=== PATIENT | male | born 1970 | race Caucasian/White ===

== ENCOUNTER 2022-02-02 15:30 | Inpatient (IN) ==
[2022-02-02 15:46] VITALS: BMI 19.4
[2022-02-02] MEDS ORDERED: NS 1,000 ML IV 1,000 ML ONE (15:57)
[2022-02-02 16:00] LABS: ABG BASE EXCESS -0.4 mmol/L (-2.0-2.0); ABG HCO3 22.8 mmol/L (22-26)
[2022-02-02 16:01] LABS: ABG ALLEN TEST POS
[2022-02-02] MEDS ORDERED: NS 1,000 ML IV 1,000 ML IV ONE (16:04)
--- NOTE | 2022-02-02 16:07 | DR.GENAD ---
HPI Time Seen Time Seen by Provider: 02/02/22 15:58 PCP Primary Care Physician: ASIF WILLIAMSON, Complaint/Symptoms Chief Complaint Doctors Comments: 51 y/o male presents for evaluation. Started feeling ill 3 days ago. + productive cough, yellow sputum. Feeling hot/cold. Having worsening dyspnea. Was treated recently for pneumonia, improved. Was around a co-worker who was coughing. Denies nausea, vomiting, diarrhea. Smokes about 1 PPD. Chief Complaint:: PT REPORTS HAVING PNEUMONIA A FEW WEEKS AGO , PT PLACE ON LEVAQUIN AND HE STATES HE GOT BETTER ( RIGHT UPPER LOBE ) PT REPORTS THAT HE HAS BEEN HAVING INCREASED SOB, 02 SATS 78%, 81% WITH 02 ON AT 4 LPM ..BR ( PT REPORTS FEVER 101.4 YESTERDAY ) .BR Self Treatment fo Chief Complaint: PT IS ON SUBOXONE , PT REPORTS RATTLING WHEN HE LAYS DOWN ,,BR PT VERY WINDED WHEN HE TALKS ABERNATHY ,BR COVID-19 Coronavirus risk:travel/contact w/high risk person: No Has patient experienced Coronavirus symptoms: Yes Coronavirus symptoms experienced: Fever, Coughing and Shortness of Breath Nurses notes reviewed Nurses Notes Review: Yes Source History Provided: Patient Mode of Arrival Mode of Arrival: Ambulatory Timing Onset of Chief Complaint: 02/01/22 PMH PMH Past Medical History: No Past Surgical History: Yes Past Surgical History Comment: SKIN CANCER Family History History of Family Medical Conditions: No Social History Does patient currently use any type of tobacco product: Yes Have you used tobacco products in the last 12 months: Yes Type of Tobacco Use: Cigarettes Does any household member use tobacco: No Alcohol Use: None Do you use any recreational Drugs:: No Lives With: Family Lives Where: Home Travel Risk Coronavirus risk:travel/contact w/high risk person: No Has patient experienced Coronavirus symptoms: Yes Coronavirus symptoms experienced: Fever, Coughing and Shortness of Breath Infectious screening In the last 2 months have you had wt loss of >10#?: NO Have you had fever, night sweats or hemotysis?: No Have you traveled outside the country in the last 6 months?: No Isolation: Respiratory ROS Review of Systems Constitutional: Chills, Diaphoresis and Fever Eyes: No Symptoms Reported ENTM: Nose Congestion Respiratoy: Productive Cough and Short of Breath Cardiovascular: No Symptoms Reported Gastrointestinal/Abdominal: No Symptoms Reported Genitourinary: No Symptoms Reported Neurological: No Symptoms Reported Musculoskeletal: No Symptoms Reported Integumentary: No Symptoms Reported Hematologic/Lymphatic: No Symptoms Reported Psychiatric: No Symptoms Reported All Other Systems: Reviewed and Negative PE Vital Signs Vitals: Temperature 97.3 F Pulse Rate 98 Respiratory Rate 22 Blood Pressure 110/67 O2 Sat by Pulse Oximetry 91 General Limitations: No Limitations General Appearance: Alert and In No Apparent Distress Eyes Eye exam: PERRL and EOMI ENT ENT Exam: Mucous Membranes Moist Nose Exam: Normal Nose Exam Throat Exam: Normal Inspection Neck Neck Exam: Normal Inspection and Full ROM Chest Chest Inspection: Normal Inspection Respiratory Respiratory Exam: negative Accessory Muscle Use and Respiratory Distress Respiratory Exam: Bilateral: Rhonchi Cardiovascular Cardiovascular Exam: Regular Rate, Normal Rhythm and Normal Heart Sounds Abdominal Exam Abdominal Exam: Normal Inspection and Soft; negative Tenderness Extremities Extremities Exam: Normal Inspection and Full ROM; negative Tenderness and Edema Back Back Exam: Normal Inspection Neurologic Neurological Exam: Alert, Oriented X3 and CN II-XII Intact; negative Motor Sensory Deficit Psychiatric Psychiatric Exam: Normal Affect Skin Skin Exam: Warm and Dry MDM Differential Diagnosis Differential Diagnosis: Pneumonia,Exacerbation COPD, Covid, PTX COURSE Treatment Treatment: 51 y/o male ill x past 3 days. + productive cough, with worsening dyspnea. Pt is a smoker. Pulse ox in the 80s on RA. W/u initiated. Pt given duoneb treatment, IV solumedrol. CXR with biateral infiltrates, c/w pneumonia. Pt started on IV Rocephin. Labs overall acceptable. Covid/flu negative. Recommend admission for further treatment, in view of hypoxia. ROR Labs Reviewed Laboratory Results Reviewed?: Yes Result Diagrams: 02/02/22 16:25 02/02/22 16:25 Laboratory: 02/02/22 16:05 Sputum - Expectorated Sputum - Final WBC 6.7 X10^3/uL (3.6-10.0) 02/02/22 16:25 RBC 4.38 X10^6/uL (4.7-6.0) L 02/02/22 16:25 Hgb 13.7 g/dL (13.5-18.0) 02/02/22 16:25 Hct 39.7 % (42.0-54.0) L 02/02/22 16:25 MCV 90.6 fL (80.0-100.0) 02/02/22 16:25 MCH 31.3 pg (27.0-34.0) 02/02/22 16: MCHC 34.6 g/dL (33.0-35.0) 02/02/22 16:25 RDW 13.0 % (11.6-16.5) 02/02/22 16:25 Plt Count 189 X10^3/uL (150.0-450.0) 02/02/22 16:25 MPV 8.5 fL (7.4-11.0) 02/02/22 16:25 Neut % (Auto) 79.1 % (42.0-75.0) H 02/02/22 16: Lymph % (Auto) 13.1 % (21.0-51.0) L 02/02/22 16:25 [place] % (Auto) 7.7 % (0.0-13.0) 02/02/22 16:25 Eos % (Auto) 0.0 % (0.9-2.9) L 02/02/22 16:25 Baso % (Auto) 0.1 % (0.2-1.0) L 02/02/22 16:25 Neut # (Auto) 5.3 x10^3/uL (2.2-4.8) H 02/02/22 16:25 Lymph # (Auto) 0.9 X10^3/uL (1.3-2.9) L 02/02/22 16:25 [place] # (Auto) 0.5 x10^3/uL (0.3-0.8) 02/02/22 16:25 Eos # (Auto) 0.0 x10^3/uL (0.0-0.2) 02/02/22 16:25 Baso # (Auto) 0.0 X10^3/uL (0.0-0.1) 02/02/22 16: Absolute Nucleated RBC 0.0 /100WBC 02/02/22 16:25 ESR 56 MM/HOUR (0-15) H 02/02/22 16:25 Sample Site Rrad 02/02/22 15:55 ABG pH 7.460 (7.35-7.45) H 02/02/22 15:55 ABG pCO2 32.0 mmHg (35.0-45.0) L 02/02/22 15:55 ABG pO2 51.0 mmHg (80.0-100.0) L 02/02/22 15:55 ABG HCO3 22.8 mmol/L (22-26) 02/02/22 15:55 ABG O2 Saturation 88.0 % (90-100) L 02/02/22 15:55 ABG Base Excess -0.4 mmol/L (-2.0-2.0) 02/02/22 15:55 Jamie Test Pos 02/02/22 15:55 A-a Gradient 59.0 mmHg 02/02/22 15:55 FiO2 21.0 02/02/22 15:55 Blood Gas Comments Srinivas well 02/02/22 15:55 Sodium 136 mmol/L (136-145) 02/02/22 16:25 Corrected Sodium 136 mmol/L (136-145) 02/02/22 16:25 Potassium 3.2 mmol/L (3.5-5.1) L 02/02/22 16:25 Chloride 98 mmol/L (98-107) 02/02/22 16:25 Carbon Dioxide 22.4 mmol/L (21-32) 02/02/22 16:25 BUN 10 mg/dL (7-18) 02/02/22 16:25 Creatinine 1.07 mg/dL (0.70-1.30) 02/02/22 16:25 Est GFR (MDRD) Af Amer > 60 (>60) 02/02/22 16:25 Est GFR (MDRD) Non-Af > 60 (>60) 02/02/22 16:25 Glucose 111 mg/dL (65-99) H 02/02/22 16:25 Lactic Acid 1.7 mmol/L (0.4-2.0) 02/02/22 16:25 Calcium 8.7 mg/dL (8.5-10.1) 02/02/22 16:25 Corrected Calcium 9.3 mg/dL (8.5-10.1) 02/02/22 16:25 Total Bilirubin 0.60 mg/dL (0.2-1.0) 02/02/22 16:25 AST 15 Units/L (15-37) 02/02/22 16:25 ALT 16 Units/L (12-78) 02/02/22 16:25 Alkaline Phosphatase 83 Units/L (46-116) 02/02/22 16:25 Creatine Kinase 80 Units/L (39-308) 02/02/22 16:25 CK-MB (CK-2) < 1.0 ng/mL (0-4.0) 02/02/22 16:25 CK/CKMB % Calc 1.3 % (<4) 02/02/22 16:25 Troponin I High Sens 36.9 ng/L (4.0-60.0) 02/02/22 16:25 B-Natriuretic Peptide 73.8 pg/mL (0-79) 02/02/22 16:25 Total Protein 7.4 g/dL (6.4-8.2) 02/02/22 16:25 Albumin 3.3 g/dL (3.4-5.0) L 02/02/22 16:25 Globulin 4.1 g/dL (2.5-4.5) 02/02/22 16:25 Albumin/Globulin Ratio 0.8 Ratio (1.1-2.1) L 02/02/22 16:25 SARS-CoV-2 (PCR) Negative (NEGATIVE) 02/02/22 16:06 Influenza Type A (PCR) Negative (NEGATIVE) 02/02/22 16:06 Influenza Type B (PCR) Negative (NEGATIVE) 02/02/22 16:06 RSV (PCR) Negative (NEGATIVE) 02/02/22 16:06 Other Results Comments: Overall labs are acceptable, except for low pO2 on ABG. Potassium slightly low. XRAY XRAY Interpreted by: Both X-ray Results: + bilateral infoltrates. EKG Rate: 95 Wallace: Normal Rhythm: NSR Block: RBBB (incomplete) Hypertrophy: LAE ST: Nonsp Opioid Opioid Risk Tool Age (Zhang box if 16-45): No History of Preadolescent Sexual Abuse: No Total: 0 Total Score Risk Category: Low Risk Copyright: Olvin DEWEY predicting aberrant behaviors Diagnosis Discharge Problem: Hypoxia Bilateral pneumonia Qualifiers: Pneumonia type: due to unspecified organism Lung location: unspecified part of lung Qualified Code(s): J18.9 - Pneumonia, unspecified organism
--- NOTE | 2022-02-02 16:31 | RAD ---
HISTORYINCREASED SOB, 02 SATS 78%, 81% WITH 02 ON AT 4 LPM. PT IS ON SUBOXONE, PT REPORTS RATTLING WHEN HE LAYS DOWN. PT VERY WINDED WHEN HE TALKS DOES Relevant Clinical InformationSTUDYCHEST, 1 VIEWCOMPARISONNone.FINDINGSThe trachea is midline. The cardiac silhouette is unremarkable. Chronic emphysematous and interstitial lung changes. Bilateral patchy airspace disease, which is worse within the lower lobes. Blunting of the right costophrenic angle which may represent a small pleural effusion. No obvious pneumothorax. The bony thorax is unremarkable.IMPRESSIONConstellation of findings likely representing multifocal pneumonia. Recommend clinical/laboratory correlation and following to resolution.Electronically signed by: LORRI WINCHESTER (Feb 02, 2022 16:31:33)
[2022-02-02 16:47] LABS: BASOPHILS % (AUTO) 0.1 % (0.2-1.0); HEMATOCRIT 39.7 % (42.0-54.0); HEMOGLOBIN 13.7 g/dL (13.5-18.0); LYMPHOCYTES # (AUTO) 0.9 X10^3/uL (1.3-2.9); LYMPHOCYTES % (AUTO) 13.1 % (21.0-51.0); MEAN CORPUSCULAR HEMOGLOBIN 31.3 pg (27.0-34.0); MEAN CORPUSCULAR HGB CONC 34.6 g/dL (33.0-35.0); MEAN CORPUSCULAR VOLUME 90.6 fL (80.0-100.0); MEAN PLATELET VOLUME 8.5 fL (7.4-11.0); MONOCYTES # (AUTO) 0.5 x10^3/uL (0.3-0.8); MONOCYTES % (AUTO) 7.7 % (0.0-13.0); NEUTROPHILS # (AUTO) 5.3 x10^3/uL (2.2-4.8); NEUTROPHILS % (AUTO) 79.1 % (42.0-75.0); RED BLOOD COUNT 4.38 X10^6/uL (4.7-6.0); WHITE BLOOD COUNT 6.7 X10^3/uL (3.6-10.0)
[2022-02-02] MEDS ORDERED: ROCEPHIN VIAL 1 GRAM 1 G in NS 100 ML IV 100 ML IV ONE (16:52)
[2022-02-02] MEDS ORDERED: DUONEB 0.5 MG/3 MG (3 mL) NEB ONE ×3 (16:53→19:59)
[2022-02-02] MEDS ORDERED: SOLU-Medrol 125 MG VIAL IVP ONE (16:53)
[2022-02-02 17:05] LABS: LACTIC ACID 1.7 mmol/L (0.4-2.0)
[2022-02-02 17:11] LABS: ALANINE AMINOTRANSFERASE 16 Units/L (12-78); ALBUMIN 3.3 g/dL (3.4-5.0); ALKALINE PHOSPHATASE 83 Units/L (46-116); ASPARTATE AMINO TRANSFERASE 15 Units/L (15-37); BLOOD UREA NITROGEN 10 mg/dL (7-18); CALCIUM 8.7 mg/dL (8.5-10.1); CARBON DIOXIDE 22.4 mmol/L (21-32); CHLORIDE 98 mmol/L (98-107); CKMB % 1.3 % (<4); COR CA(FOR HYPOALB) 9.3 mg/dL (8.5-10.1); COR NA(FOR HYPERGLY) 136 mmol/L (136-145); CREATINE KINASE 80 Units/L (39-308); CREATINE KINASE MB < 1.0 ng/mL (0-4.0); CREATININE 1.07 mg/dL (0.70-1.30); SODIUM 136 mmol/L (136-145); TOTAL PROTEIN 7.4 g/dL (6.4-8.2); eGFR NON BLACK RACES > 60 (>60)
[2022-02-02] MEDS ORDERED: ROCEPHIN VIAL 1 GRAM ONE (17:28)
[2022-02-02] MEDS ORDERED: SOLU-Medrol 125 MG VIAL ONE (17:28)
[2022-02-02] MEDS ORDERED: DUONEB 0.5 MG/3 MG (3 mL) NEB SCH ×2 (18:56→21:00)
[2022-02-02] MEDS ORDERED: PULMICORT NEB TX 0.5 MG NEB ONE (19:59)
[2022-02-02] MEDS: PULMICORT NEB TX 0.5 MG NEB SCH (20:20)
[2022-02-02] MEDS: DUONEB 0.5 MG/3 MG (3 mL) NEB SCH (20:20)
[2022-02-02] MEDS ORDERED: PULMICORT NEB TX 0.5 MG NEB SCH (21:00)
[2022-02-02] MEDS: D5 1/2 NS + KCL 20 MEQ/L 1,000 ML IV SCH (21:00)
[2022-02-02] MEDS ORDERED: KLOR-CON PO PRN (21:24)
[2022-02-02] MEDS ORDERED: POTASSIUM CHLORIDE LIQ 20 MEQ UDC PO PRN (21:24)
[2022-02-02] MEDS ORDERED: POTASSIUM CHL 60 MEQ/NS 0.45% 500 ML IV PRN (21:24)
[2022-02-02] MEDS ORDERED: MICRO K EXTEN CAP 10 MEQ PO PRN (21:24)
[2022-02-02] MEDS ORDERED: POTASSIUM CHL 40 MEQ/NS 0.45% 500 ML IV PRN (21:24)
[2022-02-02] MEDS ORDERED: MAGNESIUM SULFATE 1 GRAM/100 mL PREMIX 1 G/100 ML BAG IV PRN (21:24)
[2022-02-02] MEDS ORDERED: K-RIDER 10 MEQ/NS 100 ML 10 MEQ/100 ML BAG IV PRN (21:24)
[2022-02-02] MEDS ORDERED: K-DUR TAB 20 MEQ PO PRN (21:24)
[2022-02-02] MEDS ORDERED: LEVAQUIN PREMIX IV 750 MG 750 MG/150 ML BAG IV SCH (22:00)
[2022-02-02] MEDS: FORTAZ or TAZICEF VIAL INJ 1 G in NS 100 ML IV + SPIKE MINIBAG* 100 ML IV SCH (22:40)
[2022-02-02] MEDS: SOLU-Medrol 40 MG VIAL IVP SCH (22:45)
[2022-02-02] MEDS: LEVAQUIN PREMIX IV 750 MG 750 MG/150 ML BAG IV SCH (23:00)
[2022-02-02] MEDS: NovoLIN R (or HumuLIN R) SC PRN (23:06)
[2022-02-02] MEDS ORDERED: FORTAZ or TAZICEF VIAL INJ ONE (23:22)
[2022-02-02] MEDS ORDERED: NS 100 ML IV 200 ML ONE (23:22)
[2022-02-03] MEDS: DUONEB 0.5 MG/3 MG (3 mL) NEB SCH ×6 (00:19→22:06)
[2022-02-03] MEDS: ROBITUSSIN DM PO SCH ×6 (00:45→20:34)
[2022-02-03 04:44] LABS: ALANINE AMINOTRANSFERASE 14 Units/L (12-78); ALBUMIN 2.5 g/dL (3.4-5.0); ALKALINE PHOSPHATASE 68 Units/L (46-116); ASPARTATE AMINO TRANSFERASE 11 Units/L (15-37); BLOOD UREA NITROGEN 11 mg/dL (7-18); CALCIUM 8.3 mg/dL (8.5-10.1); CARBON DIOXIDE 20.8 mmol/L (21-32); CHLORIDE 105 mmol/L (98-107); COR CA(FOR HYPOALB) 9.5 mg/dL (8.5-10.1); COR NA(FOR HYPERGLY) 141 mmol/L (136-145); CREATININE 0.95 mg/dL (0.70-1.30); SODIUM 139 mmol/L (136-145); TOTAL PROTEIN 6.4 g/dL (6.4-8.2); eGFR NON BLACK RACES > 60 (>60)
[2022-02-03 04:59] LABS: BASOPHILS % (AUTO) 0 % (0.2-1.0); HEMATOCRIT 34.2 % (42.0-54.0); LYMPHOCYTES # (AUTO) 0.4 X10^3/uL (1.3-2.9); LYMPHOCYTES % (AUTO) 9.9 % (21.0-51.0); MEAN CORPUSCULAR HGB CONC 33.9 g/dL (33.0-35.0); MEAN CORPUSCULAR VOLUME 91.4 fL (80.0-100.0); MEAN PLATELET VOLUME 8.6 fL (7.4-11.0); MONOCYTES # (AUTO) 0.3 x10^3/uL (0.3-0.8); MONOCYTES % (AUTO) 6.8 % (0.0-13.0); NEUTROPHILS # (AUTO) 3.7 x10^3/uL (2.2-4.8); NEUTROPHILS % (AUTO) 83.3 % (42.0-75.0); RED BLOOD COUNT 3.75 X10^6/uL (4.7-6.0); RED CELL DISTRIBUTION WIDTH 12.9 % (11.6-16.5); WHITE BLOOD COUNT 4.4 X10^3/uL (3.6-10.0)
[2022-02-03 05:01] LABS: HEMOGLOBIN 11.6 g/dL (13.5-18.0)
--- NOTE | 2022-02-03 05:42 | RAD ---
PROCEDURE: Chest X-ray 1 View .HISTORY: Dyspnea.TECHNIQUE: AP view .COMPARISON: 02/02/2022.TECHNICAL QUALITY: Satisfactory .FINDINGS:Unchanged cardio mediastinal silhouette and normal central vascularity.Continued patchy pneumonia right lung base similar to previous study. Improved pneumonia left base. No pleural fluid or masses.IMPRESSION:Improved pneumonia on the left and unchanged right base.Electronically signed by: Bennett Leon (Feb 03, 2022 05:41:50)
[2022-02-03] MEDS: SOLU-Medrol 40 MG VIAL IVP SCH ×3 (06:31→21:05)
[2022-02-03] MEDS: FORTAZ or TAZICEF VIAL INJ 1 G in NS 100 ML IV + SPIKE MINIBAG* 100 ML IV SCH (06:31)
[2022-02-03] MEDS: NovoLIN R (or HumuLIN R) SC PRN ×3 (06:35→21:05)
[2022-02-03] MEDS: D5 1/2 NS + KCL 20 MEQ/L 1,000 ML IV SCH ×3 (08:17→20:33)
[2022-02-03] MEDS: PULMICORT NEB TX 0.5 MG NEB SCH ×2 (08:40→20:45)
[2022-02-03] MEDS ORDERED: ROCEPHIN VIAL 1 GRAM 1 G in NS 100 ML IV 100 ML IV SCH (09:00)
[2022-02-03] MEDS: NICOTINE PATCH TD SCH (09:27)
[2022-02-03] MEDS ORDERED: SUBOXONE FILM SL SCH (10:00)
[2022-02-03] MEDS: SUBOXONE TAB SL SCH (10:13)
--- NOTE | 2022-02-03 12:56 | DR.H&P ---
H&P - History & Physical for Day of: H&P Date: 02/02/22 - Chief Complaint Chief Complaint: FEVER, SOB, COUGH - History of Present Illness History of Present Illness: IS A 51 YEAR OLD WHITE MALE. HE PRESENTED TO THE ER FOR COMPLAINTS OF INCREASING FEVER, SHORTNESS OF BREATH, AND A PRODUCTIVE COUGH. HE REPORTS BEING TREATED FOR RIGHT UPPER LOBE PNEUMONIA A FEW WEEKS AGO. HE ADMITS TO TAKING ALL ANTIBIOTICS WITHOUT IMPROVEMENT IN SYMPTOMS. SPUTUM IS APPARENTLY YELLOW AND THICK. SHORTNESS OF BREATH IS WORSE ON EXERTION. HIS PMH INCLUDES: OPIOID DEPENDENCE, SKIN CA. ON ARRIVAL TO THE ER, OXYGEN SATURATIONS WERE 78-81% ON ROOM AIR. HE WAS PLACED ON OXYGEN VIA NASAL CANNULA AT 2 LPM. SATURATIONS INCREASED TO THE LOWER 90s. HIS VITALS ON ARRIVAL WERE: 97.3-97-22-79%RA-118/57. LABS WERE OBTAINED. WBC 6.7, RBC 4.38, HGB 13.7, HCT 39.7, SODIUM 136, POTASSIUM 3.2, BUN 10, CREATININE 1.07, GLUCOSE 111, LACTIC ACID 107, CALCIUM 8.7, CRP 280.80, BNP 73.8, ALBUMIN 3.3. ABG REVEALED: 7.460, PC02 32, P02 51, HC03 22.8, 02 SAT 88, A-A GRADIENT 59, FI02 21. COVID, INFLUENZA, AND RSV NEGATIVE. SPUTUM AND BLOOD CULTURES WERE SET UP. A CHEST XRAY WAS OBTAINED AND REVEALED: Constellation of findings likely representing multifocal pneumonia. Recommend clinical/laboratory correlation and following to resolution. IN THE ER, HE WAS GIVEN A NORMAL SALINE BOLUS, ROCEPHIN 1G IM X 1, DUONEB X 1, SOLU-MEDROL 125MG IV X 1. HE WAS ADMITTED TO THE HOSPITAL FOR FURTHER EVALUATION AND TREATMENT OF BILATERAL PNEUMONIA AND HYPOXIA. HE WAS STARTED ON D51/2NS WITH 20MEQ KCL AT KVO, FORTAZ 1G IV Q8H, LEVAQUIN 750MG IV HS, ROBITUSSIN DM 10ML QID, SOLU-MEDROL 80MG IV Q4H, DUONEBS Q4H, PULMICORT NEBS BID, OTBS ACHS, HUMULIN R SLIDING SCALE, AND THE POTASSIUM AND MAGNESIUM PROTOCOL. OTHERWISE, WE PLAN TO FOLLOW UP WITH AM LABS AND CHEST XRAY AND C ONTINUE TO MONITOR. TIME SPENT ON CLINICAL ASSESSMENT, REVIEWING LABS AND IMAGING, DECISION MAKING, AND DOCUMENTATION GREATER THAN 75 MINUTES. - Past Medical History Additional Medical History: OPIOID DEPENDENCE, HX OF SKIN CANCER - Past Surgical History Surgical History: Ortho Surgery, Other - Family History Family Medical History: Diabetes Mellitus, [place], Hypertension - Social History Does patient currently use any type of tobacco product: Yes Have you used tobacco products in the last 12 months: Yes Type of Tobacco Use: Cigarettes Packs per day or dips/chews per day: 1PK Does any household member use tobacco: No Alcohol Use: None Drug Use: None - Medications Home Medications: No Known Drug Allergies Allergy (Verified 02/02/22 15:51) CONTINUE taking the following medications buprenorphine-naloxone 1.5 film BUCCAL DAILY 02/03/22 [History] - Review of Systems Constitutional: Fever, Weakness Eyes: No Symptoms Reported ENT: No Symptoms Reported Respiratory: Cough, Shortness of Breath, SOB with Excertion, Sputum Cardiovascular: No Symptoms Reported Gastrointestinal: No Symptoms Reported Genitourinary: No Symptoms Reported Musculoskeletal: No Symptoms Reported Skin: No Symptoms Reported Neurological: Weakness, Confusion - Physical Exam Vital Signs: Temperature 98.9 F Pulse Rate 72 Respiratory Rate 29 Blood Pressure 117/66 O2 Sat by Pulse Oximetry 94 Oriented: Normal Eyes: Normal Ear: Normal Nose: Normal Respiratory: Diminished Throughout, Rhonchi Throughout Cardiovascular: Normal. negative: S3, S4, Murmur, Edema : Normal Auscultation: Bowel Sounds: Normal Palpation: Normal Tenderness: Normal Skin: Normal Musculoskeletal: Normal Psychiatric: Normal Mood Description: Calm Affect: Normal Speech Pattern: Clear - Assessment/Plan (1) Bilateral pneumonia Qualifiers: Pneumonia type: due to unspecified organism Lung location: unspecified part of lung Qualified Code(s): J18.9 - Pneumonia, unspecified organism Status: Acute Plan: ADMIT, SUPPLEMENTAL OXYGEN, D51/2NS WITH 20MEQ KCL AT KVO, FORTAZ 1G IV Q8H, LEVAQUIN 750MG IV HS, ROBITUSSIN DM 10ML QID, SOLU-MEDROL 80MG IV Q4H, DUONEBS Q4H, PULMICORT NEBS BID, OTBS ACHS, HUMULIN R SLIDING SCALE, AND THE POTASSIUM AND MAGNESIUM PROTOCOL. (2) Hypoxia Status: Acute - Allergies Allergies/Adverse Reactions: Allergies Allergy/AdvReac Type Severity Reaction Status Date / Time No Known Drug Allergies Allergy Verified 02/02/22 15:51
[2022-02-03] MEDS: FORTAZ or TAZICEF VIAL INJ 1 G in NS 100 ML IV 100 ML IV SCH ×2 (13:28→21:05)
[2022-02-03] MEDS ORDERED: TYLENOL 325 MG TAB PO PRN (16:26)
[2022-02-03] MEDS ORDERED: TYLENOL 325 MG TAB PO ONE (16:29)
[2022-02-03] MEDS: LEVAQUIN PREMIX IV 750 MG 750 MG/150 ML BAG IV SCH (20:34)
[2022-02-04] MEDS: SOLU-Medrol 40 MG VIAL IVP SCH ×3 (05:14→21:20)
[2022-02-04] MEDS: FORTAZ or TAZICEF VIAL INJ 1 G in NS 100 ML IV 100 ML IV SCH ×3 (05:14→23:50)
[2022-02-04 05:32] LABS: BASOPHILS % (AUTO) 0 % (0.2-1.0); LYMPHOCYTES # (AUTO) 0.9 X10^3/uL (1.3-2.9); LYMPHOCYTES % (AUTO) 10.8 % (21.0-51.0); MEAN CORPUSCULAR HEMOGLOBIN 31.2 pg (27.0-34.0); MEAN CORPUSCULAR HGB CONC 34.4 g/dL (33.0-35.0); MEAN CORPUSCULAR VOLUME 90.5 fL (80.0-100.0); MONOCYTES # (AUTO) 0.6 x10^3/uL (0.3-0.8); MONOCYTES % (AUTO) 7.7 % (0.0-13.0); NEUTROPHILS # (AUTO) 6.9 x10^3/uL (2.2-4.8); NEUTROPHILS % (AUTO) 81.5 % (42.0-75.0); RED BLOOD COUNT 3.53 X10^6/uL (4.7-6.0); RED CELL DISTRIBUTION WIDTH 13.1 % (11.6-16.5); WHITE BLOOD COUNT 8.5 X10^3/uL (3.6-10.0)
[2022-02-04 05:41] LABS: ALANINE AMINOTRANSFERASE 18 Units/L (12-78); ALBUMIN 2.3 g/dL (3.4-5.0); ALKALINE PHOSPHATASE 66 Units/L (46-116); ASPARTATE AMINO TRANSFERASE 17 Units/L (15-37); BLOOD UREA NITROGEN 11 mg/dL (7-18); CALCIUM 8.2 mg/dL (8.5-10.1); CARBON DIOXIDE 19.5 mmol/L (21-32); CHLORIDE 109 mmol/L (98-107); COR CA(FOR HYPOALB) 9.6 mg/dL (8.5-10.1); COR NA(FOR HYPERGLY) 142 mmol/L (136-145); CREATININE 0.78 mg/dL (0.70-1.30); MAGNESIUM 2.2 mg/dL (1.7-2.9); SODIUM 140 mmol/L (136-145); TOTAL PROTEIN 5.9 g/dL (6.4-8.2); eGFR NON BLACK RACES > 60 (>60)
[2022-02-04] MEDS: DUONEB 0.5 MG/3 MG (3 mL) NEB SCH ×6 (05:45→20:08)
--- NOTE | 2022-02-04 06:17 | RAD ---
HISTORYSOB Relevant Clinical InformationSTUDYCHEST, 1 [id number]/01/2022FINDINGSThe trachea is midline. The cardiac silhouette is unremarkable. Patchy right basilar pneumonic infiltrate unchanged. No pneumothorax. The bony thorax is unremarkable.IMPRESSIONRight basilar pneumonia; no significant change from previous 02/03/2022.Electronically signed by: Jayme Foster (Feb 04, 2022 06:17:12)
[2022-02-04] MEDS: SUBOXONE TAB SL SCH (09:20)
[2022-02-04] MEDS: NICOTINE PATCH TD SCH (09:21)
[2022-02-04] MEDS: ROBITUSSIN DM PO SCH ×4 (09:21→21:45)
[2022-02-04] MEDS: PULMICORT NEB TX 0.5 MG NEB SCH ×2 (09:22→20:08)
[2022-02-04] MEDS ORDERED: COLACE CAP 100 MG PO PRN (15:15)
[2022-02-04] MEDS ORDERED: MILK OF MAGNESIA PO PRN (15:15)
[2022-02-04] MEDS: NovoLIN R (or HumuLIN R) SC PRN ×2 (17:13→22:15)
[2022-02-04] MEDS: COLACE CAP 100 MG PO SCH (21:45)
[2022-02-04] MEDS: MILK OF MAGNESIA PO SCH (21:45)
[2022-02-04] MEDS: LEVAQUIN PREMIX IV 750 MG 750 MG/150 ML BAG IV SCH (21:45)
[2022-02-04] MEDS: MIRALAX POWDER (1 DOSE 17 G) PO SCH (21:45)
[2022-02-04] MEDS: D5 1/2 NS + KCL 20 MEQ/L 1,000 ML IV SCH (23:10)
[2022-02-05] MEDS: DUONEB 0.5 MG/3 MG (3 mL) NEB SCH ×5 (00:10→20:24)
[2022-02-05 04:32] LABS: BASOPHILS % (AUTO) 0.2 % (0.2-1.0); EOSINOPHILS % (AUTO) 0.1 % (0.9-2.9); HEMATOCRIT 32.8 % (42.0-54.0); HEMOGLOBIN 11.2 g/dL (13.5-18.0); LYMPHOCYTES # (AUTO) 1.1 X10^3/uL (1.3-2.9); LYMPHOCYTES % (AUTO) 10.6 % (21.0-51.0); MEAN CORPUSCULAR HEMOGLOBIN 30.8 pg (27.0-34.0); MEAN CORPUSCULAR HGB CONC 34.2 g/dL (33.0-35.0); MEAN PLATELET VOLUME 8.2 fL (7.4-11.0); MONOCYTES # (AUTO) 0.8 x10^3/uL (0.3-0.8); MONOCYTES % (AUTO) 7.6 % (0.0-13.0); NEUTROPHILS # (AUTO) 8.7 x10^3/uL (2.2-4.8); NEUTROPHILS % (AUTO) 81.5 % (42.0-75.0); RED BLOOD COUNT 3.64 X10^6/uL (4.7-6.0); RED CELL DISTRIBUTION WIDTH 13.5 % (11.6-16.5); WHITE BLOOD COUNT 10.7 X10^3/uL (3.6-10.0)
[2022-02-05 04:41] LABS: ALANINE AMINOTRANSFERASE 35 Units/L (12-78); ALBUMIN 2.3 g/dL (3.4-5.0); ALKALINE PHOSPHATASE 65 Units/L (46-116); ASPARTATE AMINO TRANSFERASE 28 Units/L (15-37); BLOOD UREA NITROGEN 12 mg/dL (7-18); CALCIUM 8.3 mg/dL (8.5-10.1); CARBON DIOXIDE 22.3 mmol/L (21-32); CHLORIDE 106 mmol/L (98-107); COR CA(FOR HYPOALB) 9.7 mg/dL (8.5-10.1); COR NA(FOR HYPERGLY) 143 mmol/L (136-145); CREATININE 0.84 mg/dL (0.70-1.30); SODIUM 141 mmol/L (136-145); TOTAL PROTEIN 5.8 g/dL (6.4-8.2); eGFR NON BLACK RACES > 60 (>60)
[2022-02-05 05:14] LABS: PLATELET MORPHOLOGY COMMENT NORMAL (NORMAL)
[2022-02-05] MEDS: FORTAZ or TAZICEF VIAL INJ 1 G in NS 100 ML IV 100 ML IV SCH ×3 (05:35→21:20)
--- NOTE | 2022-02-05 06:28 | RAD ---
HISTORYSOB Relevant Clinical InformationSTUDYCHEST, 1 [id number]/02/2022FINDINGSThe trachea is midline. The cardiac silhouette is unremarkable. Patchy right basilar pneumonic infiltrate slightly improved from previous 02/04/2022.. The bony thorax is unremarkable.IMPRESSIONImproving right basilar pneumoniaElectronically signed by: Jayme Foster (Feb 05, 2022 06:28:17)
[2022-02-05] MEDS: SOLU-Medrol 40 MG VIAL IVP SCH ×3 (06:30→21:15)
[2022-02-05] MEDS: COLACE CAP 100 MG PO SCH ×2 (08:31→21:15)
[2022-02-05] MEDS: SUBOXONE TAB SL SCH (08:31)
[2022-02-05] MEDS: MILK OF MAGNESIA PO SCH ×2 (08:31→21:05)
[2022-02-05] MEDS: ROBITUSSIN DM PO SCH ×4 (08:31→21:05)
[2022-02-05] MEDS: NICOTINE PATCH TD SCH (08:31)
[2022-02-05] MEDS: PULMICORT NEB TX 0.5 MG NEB SCH ×2 (09:36→20:24)
[2022-02-05] MEDS: DIFLUCAN 200 MG IV PREMIX* 200 MG/100 ML BAG IV SCH (09:45)
[2022-02-05] MEDS: D5 1/2 NS + KCL 20 MEQ/L 1,000 ML IV SCH ×2 (13:44→16:48)
[2022-02-05] MEDS: LEVAQUIN PREMIX IV 750 MG 750 MG/150 ML BAG IV SCH (20:10)
[2022-02-05] MEDS: MIRALAX POWDER (1 DOSE 17 G) PO SCH (21:05)
[2022-02-06] MEDS: DUONEB 0.5 MG/3 MG (3 mL) NEB SCH ×4 (00:35→13:10)
[2022-02-06 05:04] LABS: BASOPHILS % (AUTO) 0.3 % (0.2-1.0); EOSINOPHILS % (AUTO) 0.1 % (0.9-2.9); HEMATOCRIT 32.4 % (42.0-54.0); HEMOGLOBIN 10.9 g/dL (13.5-18.0); LYMPHOCYTES # (AUTO) 1.3 X10^3/uL (1.3-2.9); LYMPHOCYTES % (AUTO) 10.7 % (21.0-51.0); MEAN CORPUSCULAR HEMOGLOBIN 30.3 pg (27.0-34.0); MEAN CORPUSCULAR HGB CONC 33.6 g/dL (33.0-35.0); MEAN CORPUSCULAR VOLUME 90.2 fL (80.0-100.0); MEAN PLATELET VOLUME 8.1 fL (7.4-11.0); MONOCYTES # (AUTO) 1.1 x10^3/uL (0.3-0.8); MONOCYTES % (AUTO) 9.4 % (0.0-13.0); NEUTROPHILS # (AUTO) 9.5 x10^3/uL (2.2-4.8); NEUTROPHILS % (AUTO) 79.5 % (42.0-75.0); RED BLOOD COUNT 3.59 X10^6/uL (4.7-6.0); RED CELL DISTRIBUTION WIDTH 13.4 % (11.6-16.5); WHITE BLOOD COUNT 11.9 X10^3/uL (3.6-10.0)
[2022-02-06 05:15] LABS: ALANINE AMINOTRANSFERASE 34 Units/L (12-78); ALBUMIN 2.2 g/dL (3.4-5.0); ALKALINE PHOSPHATASE 63 Units/L (46-116); ASPARTATE AMINO TRANSFERASE 20 Units/L (15-37); BLOOD UREA NITROGEN 12 mg/dL (7-18); CALCIUM 8.1 mg/dL (8.5-10.1); CARBON DIOXIDE 24.9 mmol/L (21-32); CHLORIDE 106 mmol/L (98-107); COR CA(FOR HYPOALB) 9.5 mg/dL (8.5-10.1); COR NA(FOR HYPERGLY) 141 mmol/L (136-145); CREATININE 0.83 mg/dL (0.70-1.30); SODIUM 140 mmol/L (136-145); TOTAL PROTEIN 5.4 g/dL (6.4-8.2); eGFR NON BLACK RACES > 60 (>60)
[2022-02-06] MEDS: FORTAZ or TAZICEF VIAL INJ 1 G in NS 100 ML IV 100 ML IV SCH ×2 (05:33→14:30)
[2022-02-06] MEDS: SOLU-Medrol 40 MG VIAL IVP SCH ×2 (05:33→14:30)
[2022-02-06 05:42] LABS: BAND NEUTROPHILS % 2 % (0-10); PLATELET MORPHOLOGY COMMENT NORMAL (NORMAL)
--- NOTE | 2022-02-06 06:02 | RAD ---
HISTORYShortness of breathSTUDYChest AP [id number]/03/2022 and multiple priorsFINDINGSHeart size is normal. Leia are normal. Lungs are hyperinflated. Right basilar lung infiltrate continues to improve. Some residual infiltrate remains. There is minimal residual left perihilar infiltrate present. No pleural effusions, areas of consolidation, pneumothorax identified. Bony thorax is unremarkable.IMPRESSIONNo change hyperinflationContinued improvement right basilar infiltrate with mild residual infiltrate remainingMild residual left perihilar infiltrateElectronically signed by: JAE MYERS (Feb 06, 2022 06:02:42)
[2022-02-06] MEDS: COLACE CAP 100 MG PO SCH (08:31)
[2022-02-06] MEDS: DIFLUCAN 200 MG IV PREMIX* 200 MG/100 ML BAG IV SCH (08:31)
[2022-02-06] MEDS: MILK OF MAGNESIA PO SCH (08:32)
[2022-02-06] MEDS: ROBITUSSIN DM PO SCH ×2 (08:32→12:21)
[2022-02-06] MEDS: SUBOXONE TAB SL SCH (08:33)
[2022-02-06] MEDS: NICOTINE PATCH TD SCH (08:48)
[2022-02-06] MEDS: PULMICORT NEB TX 0.5 MG NEB SCH (09:06)
[2022-02-06] MEDS: D5 1/2 NS + KCL 20 MEQ/L 1,000 ML IV SCH (11:36)
[2022-02-06 15:32] VITALS: BP 143/79
--- NOTE | 2022-03-23 17:51 | PCM.PROG ---
Progress Note - Progress Note for Day of Date of Exam: 02/04/22 - Subjective Subjective: WAS ADMITTED FOR TREATMENT OF BILATERAL PNEUMONIA AND HYPOXIA. TODAY, HE IS ALERT AND ORIENTED, LYING IN BED ON MORNING ROUNDS. HE CONTINUES WITH COMPLAINTS OF SHORNTESS OF BREATH, COUGH, AND A PRODUCTIVE COUGH. HE IS CURRENTLY UTILIZING OXYGEN AT 4 LPM. SATURATIONS DECREASED INTO THE UPPER 80s MULTIPLE TIMES THROUGHOUT THE NIGHT. HE DENIES A BOWEL MOVEMENT IN SEVERAL DAYS. ON EXAMINATION, HEART IS REGULAR IN RATE AND RHYTHM. BILATERAL LUNGS NOTED WITH RHONCHI THROUGHOUT. ABDOMEN IS FLAT, SOFT, AND NON-TENDER WITH NORMAL BOWEL SOUNDS NOTED IN ALL QUADRANTS. NO UPPER OR LOWER EXTREMITY EDEMA NOTED. HIS VITALS THIS MORNING ARE: 97.8-76-29-90%-121/68. LABS WERE OBTAINED. ABNORMAL LAB VALUES INCLUDE THE FOLLOWING: RBC 3.53, HGB 11.0, HCT 32.0, CHLORIDE 109, CARBON DIOXIDE 19.5, GLUCOSE 169, CALCIUM 8.2, CRP 114.80, TOTAL PROTEIN 5.9, ALBUMIN 2.3. SPUTUM AND BLOOD CULTURES ARE PENDING. CHEST XRAY WAS OBTAINED TODAY AND REVEALED: Right basilar pneumonia; no significant change from previous 02/03/2022. HE IS CURRENTLY RECEIVING D51/2NS WITH 20MEQ KCL AT KVO, FORTAZ 1G IV Q8H, LEVAQUIN 750MG IV HS, ROBITUSSIN DM 10ML QID, SOLU-MEDROL 80MG IV Q4H, DUONEBS Q4H, PULMICORT NEBS BID, OTBS ACHS, HUMULIN R SLIDING SCALE, AND THE POTASSIUM AND MAGNESIUM PROTOCOL. WE WILL CONTINUE WITH CURRENT PLAN OF CARE TODAY AND ADD DOCUSATE SODIUM 100MG PO BID, MILK OF MAGNESIA 30ML PO BID, MIRALAX 17G PO DAILY. OTHERWISE, WE WILL FOLLOW-UP WITH AM LABS AND CHEST XRAY AND CONTINUE TO MONITOR. TIME SPENT ON CLINICAL ASSESSMENT, REVIEWING LABS AND IMAGING, DECISION MAKING, AND DOCUMENTATION GREATER THAN 45 MINUTES. - Past Medical Family Social History Past Med/Fam/Surg Hx: No changes since H&P Allergies: Allergies No Known Drug Allergies Allergy (Verified 02/02/22 15:51) - Review of Systems ROS: No change since H&P - Vital Signs and I&O's Vital Signs: Temperature 98.1 F Pulse Rate 108 Respiratory Rate 20 Blood Pressure 143/79 O2 Sat by Pulse Oximetry 95 - Physical Exam Oriented: Normal Eyes: Normal Ear: Normal Nose: Normal Throat: Normal Respiratory: Generalized, Rhonchi Cardiovascular: Normal. negative: S3, S4, Murmur, Edema : Normal Auscultation: Bowel Sounds: Normal Palpation: Normal Tenderness: Normal Skin: Normal Musculoskeletal: Normal Psychiatric: Normal Mood Description: Calm Affect: Normal Speech Pattern: Clear, Appropriate - Laboratory and Diagnostics Result Diagrams: 02/06/22 04:20 02/06/22 04:20 Labs: 02/02/22 16:05 Sputum - Expectorated Sputum Sputum Culture - Final Streptococcus Pneumoniae Elizabeth Glabrata 02/02/22 16:05 Sputum - Expectorated Sputum - Final 02/02/22 16:25 Blood Blood Culture - Final 02/02/22 16:25 Blood Blood Culture - Final Laboratory WBC 11.9 X10^3/uL (3.6-10.0) H 02/06/22 04:20 RBC 3.59 X10^6/uL (4.7-6.0) L 02/06/22 04:20 Hgb 10.9 g/dL (13.5-18.0) L 02/06/22 04:20 Hct 32.4 % (42.0-54.0) L 02/06/22 04:20 MCV 90.2 fL (80.0-100.0) 02/06/22 04:20 MCH 30.3 pg (27.0-34.0) 02/06/22 04:20 MCHC 33.6 g/dL (33.0-35.0) 02/06/22 04:20 RDW 13.4 % (11.6-16.5) 02/06/22 04:20 Plt Count 223 X10^3/uL (150.0-450.0) 02/06/22 04:20 Plt Count Comment Adequate (ADEQUATE) 02/06/22 04:20 MPV 8.1 fL (7.4-11.0) 02/06/22 04:20 Neut % (Auto) 79.5 % (42.0-75.0) H 02/06/22 04:20 Lymph % (Auto) 10.7 % (21.0-51.0) L 02/06/22 04:20 [place] % (Auto) 9.4 % (0.0-13.0) 02/06/22 04:20 Eos % (Auto) 0.1 % (0.9-2.9) L 02/06/22 04:20 Baso % (Auto) 0.3 % (0.2-1.0) 02/06/22 04:20 Neut # (Auto) 9.5 x10^3/uL (2.2-4.8) H 02/06/22 04:20 Lymph # (Auto) 1.3 X10^3/uL (1.3-2.9) 02/06/22 04:20 [place] # (Auto) 1.1 x10^3/uL (0.3-0.8) H 02/06/22 04:20 Eos # (Auto) 0.0 x10^3/uL (0.0-0.2) 02/06/22 04:20 Baso # (Auto) 0.0 X10^3/uL (0.0-0.1) 02/06/22 04:20 Absolute Nucleated RBC 0.0 /100WBC 02/06/22 04:20 Total Counted 100 02/06/22 04:20 Neutrophils % (Manual) 71 % (39-76) 02/06/22 04:20 Band Neutrophils % 2 % (0-10) 02/06/22 04:20 Lymphocytes % (Manual) 14 % (13-43) 02/06/22 04:20 Monocytes % (Manual) 13 % (4-9) H 02/06/22 04:20 Plt Morphology Comment Normal (NORMAL) 02/06/22 04:20 RBC Morphology Normal (NORMAL) 02/06/22 04:20 ESR 56 MM/HOUR (0-15) H 02/02/22 16:25 Sample Site Rrad 02/02/22 15:55 ABG pH 7.460 (7.35-7.45) H 02/02/22 15:55 ABG pCO2 32.0 mmHg (35.0-45.0) L 02/02/22 15:55 ABG pO2 51.0 mmHg (80.0-100.0) L 02/02/22 15:55 ABG HCO3 22.8 mmol/L (22-26) 02/02/22 15:55 ABG O2 Saturation 88.0 % (90-100) L 02/02/22 15:55 ABG Base Excess -0.4 mmol/L (-2.0-2.0) 02/02/22 15:55 Jamie Test Pos 02/02/22 15:55 A-a Gradient 59.0 mmHg 02/02/22 15:55 FiO2 21.0 02/02/22 15:55 Blood Gas Comments Srinivas well 02/02/22 15:55 Sodium 140 mmol/L (136-145) 02/06/22 04:20 Corrected Sodium 141 mmol/L (136-145) 02/06/22 04:20 Potassium 4.4 mmol/L (3.5-5.1) 02/06/22 04:20 Chloride 106 mmol/L (98-107) 02/06/22 04:20 Carbon Dioxide 24.9 mmol/L (21-32) 02/06/22 04:20 BUN 12 mg/dL (7-18) 02/06/22 04:20 Creatinine 0.83 mg/dL (0.70-1.30) 02/06/22 04:20 Est GFR (MDRD) Af Amer > 60 (>60) 02/06/22 04:20 Est GFR (MDRD) Non-Af > 60 (>60) 02/06/22 04:20 Glucose 145 mg/dL (65-99) H 02/06/22 04:20 POC Glucose (mg/dL) 118 mg/dL (65-99) H 02/06/22 11:36 Lactic Acid 1.7 mmol/L (0.4-2.0) 02/02/22 16:25 Calcium 8.1 mg/dL (8.5-10.1) L 02/06/22 04:20 Corrected Calcium 9.5 mg/dL (8.5-10.1) 02/06/22 04:20 Magnesium 2.2 mg/dL (1.7-2.9) 02/04/22 04:50 Total Bilirubin 0.20 mg/dL (0.2-1.0) 02/06/22 04:20 AST 20 Units/L (15-37) 02/06/22 04:20 ALT 34 Units/L (12-78) 02/06/22 04:20 Alkaline Phosphatase 63 Units/L (46-116) 02/06/22 04:20 Creatine Kinase 80 Units/L (39-308) 02/02/22 16:25 CK-MB (CK-2) < 1.0 ng/mL (0-4.0) 02/02/22 16:25 CK/CKMB % Calc 1.3 % (<4) 02/02/22 16:25 Troponin I High Sens 36.9 ng/L (4.0-60.0) 02/02/22 16:25 C-Reactive Protein 24.80 mg/L (0-3.0) H 02/06/22 04:20 B-Natriuretic Peptide 73.8 pg/mL (0-79) 02/02/22 16:25 Total Protein 5.4 g/dL (6.4-8.2) L 02/06/22 04:20 Albumin 2.2 g/dL (3.4-5.0) L 02/06/22 04:20 Globulin 3.2 g/dL (2.5-4.5) 02/06/22 04:20 Albumin/Globulin Ratio 0.7 Ratio (1.1-2.1) L 02/06/22 04:20 SARS-CoV-2 (PCR) Negative (NEGATIVE) 02/02/22 16:06 HIV-1 Ab Confirm (Blot) TNP 02/03/22 04:00 HIV 1&2 Antibody Screen Negative (Negative) 02/03/22 04:00 Influenza Type A (PCR) Negative (NEGATIVE) 02/02/22 16:06 Influenza Type B (PCR) Negative (NEGATIVE) 02/02/22 16:06 RSV (PCR) Negative (NEGATIVE) 02/02/22 16:06 - Plan (1) Bilateral pneumonia Status: Acute Qualifiers: Pneumonia type: due to unspecified organism Lung location: unspecified part of lung Qualified Code(s): J18.9 - Pneumonia, unspecified organism Plan: SUPPLEMENTAL OXYGEN, D51/2NS WITH 20MEQ KCL AT KVO, FORTAZ 1G IV Q8H, LE [place]QUIN 750MG IV HS, ROBITUSSIN DM 10ML QID, SOLU-MEDROL 80MG IV Q4H, DUONEBS Q4H, PULMICORT NEBS BID, OTBS ACHS, HUMULIN R SLIDING SCALE, AND THE POTASSIUM AND MAGNESIUM PROTOCOL. (2) Hypoxia Status: Acute (3) Constipation Status: Acute Qualifiers: Constipation type: slow transit constipation Qualified Code(s): K59.01 - Slow transit constipation Plan: COLACE, MILK OF MAGNESIA, MIRALAX
--- NOTE | 2022-03-23 17:56 | PCM.PROG ---
Progress Note - Progress Note for Day of Date of Exam: 02/05/22 - Subjective Subjective: WAS ADMITTED FOR TREATMENT OF BILATERAL PNEUMONIA AND HYPOXIA. TODAY, HE IS ALERT AND ORIENTED, LYING IN BED ON MORNING ROUNDS. HE CONTINUES WITH COMPLAINTS OF SHORNTESS OF BREATH, COUGH, AND A PRODUCTIVE COUGH. HE ADMITS TO SLIGHT IMPROVEMENT IN SYMPTOMS TODAY. HE IS CURRENTLY UTILIZING OXYGEN AT 4 LPM. SATURATIONS HAVE BEEN 86-92% THROUGHOUT THE NIGHT AND THIS MORNING. HE CONTINUES TO DENY A BOWEL MOVEMENT IN SEVERAL DAYS. ON EXAMINATION, HEART IS REGULAR IN RATE AND RHYTHM. BILATERAL LUNGS NOTED WITH RHONCHI THROUGHOUT. ABDOMEN IS FLAT, SOFT, AND NON-TENDER WITH NORMAL BOWEL SOUNDS NOTED IN ALL QUADRANTS. NO UPPER OR LOWER EXTREMITY EDEMA NOTED. HIS VITALS THIS MORNING ARE: 97.9-87-22-88%-118/66. LABS WERE OBTAINED. ABNORMAL LAB VALUES INCLUDE THE FOLLOWING: WBC 10.7, RBC 3.64, HGB 11.2, HCT 32.8, GLUCOSE 163, CALCIUM 8.3, CRP 53.0. SPUTUM AND BLOOD CULTURES ARE PENDING. PRELIMINARY SPUTUM CULTURE IS POSITIVE FOR GRAM POSITIVE COCCI AND YEAST. CHEST XRAY WAS OBTAINED TODAY AND REVEALED: No change hyperinflation. Continued improvement right basilar infiltrate with mild residual infiltrate remaining. Mild residual left perihilar infiltrate. HE IS CURRENTLY RECEIVING D51/2NS WITH 20MEQ KCL AT KVO, FORTAZ 1G IV Q8H, LEVAQUIN 750MG IV HS, ROBITUSSIN DM 10ML QID, SOLU-MEDROL 80MG IV Q4H, DUONEBS Q4H, PULMICORT NEBS BID, MIRALAX DAILY, MILK OF MAGNESIA BID, COLACE BID, OTBS ACHS, HUMULIN R SLIDING SCALE, AND THE POTASSIUM AND MAGNESIUM PROTOCOL. WE WILL CONTINUE WITH CURRENT PLAN OF CARE TODAY AND ADD DIFLUCAN 200MG IV DAILY. OTHERWISE, WE WILL FOLLOW-UP WITH AM LABS AND CHEST XRAY AND CONTINUE TO MONITOR. TIME SPENT ON CLINICAL ASSESSMENT, REVIEWING LABS AND IMAGING, DECISION MAKING, AND DOCUMENTATION GREATER THAN 45 MINUTES. - Past Medical Family Social History Past Med/Fam/Surg Hx: No changes since H&P Allergies: Allergies No Known Drug Allergies Allergy (Verified 02/02/22 15:51) - Review of Systems ROS: No change since H&P - Vital Signs and I&O's Vital Signs: Temperature 98.1 F Pulse Rate 108 Respiratory Rate 20 Blood Pressure 143/79 O2 Sat by Pulse Oximetry 95 - Physical Exam Oriented: Normal Eyes: Normal Ear: Normal Nose: Normal Throat: Normal Respiratory: Generalized, Rhonchi Cardiovascular: Normal. negative: S3, S4, Murmur, Edema : Normal Auscultation: Bowel Sounds: Normal Tenderness: Normal Skin: Normal Musculoskeletal: Normal Psychiatric: Normal Mood Description: Calm Affect: Normal Speech Pattern: Clear, Appropriate - Laboratory and Diagnostics Result Diagrams: 02/06/22 04:20 02/06/22 04:20 Labs: 02/02/22 16:05 Sputum - Expectorated Sputum Sputum Culture - Final Streptococcus Pneumoniae Elizabeth Glabrata 02/02/22 16:05 Sputum - Expectorated Sputum - Final 02/02/22 16:25 Blood Blood Culture - Final 02/02/22 16:25 Blood Blood Culture - Final Laboratory WBC 11.9 X10^3/uL (3.6-10.0) H 02/06/22 04:20 RBC 3.59 X10^6/uL (4.7-6.0) L 02/06/22 04:20 Hgb 10.9 g/dL (13.5-18.0) L 02/06/22 04:20 Hct 32.4 % (42.0-54.0) L 02/06/22 04:20 MCV 90.2 fL (80.0-100.0) 02/06/22 04:20 MCH 30.3 pg (27.0-34.0) 02/06/22 04:20 MCHC 33.6 g/dL (33.0-35.0) 02/06/22 04:20 RDW 13.4 % (11.6-16.5) 02/06/22 04:20 Plt Count 223 X10^3/uL (150.0-450.0) 02/06/22 04:20 Plt Count Comment Adequate (ADEQUATE) 02/06/22 04:20 MPV 8.1 fL (7.4-11.0) 02/06/22 04:20 Neut % (Auto) 79.5 % (42.0-75.0) H 02/06/22 04:20 Lymph % (Auto) 10.7 % (21.0-51.0) L 02/06/22 04:20 [place] % (Auto) 9.4 % (0.0-13.0) 02/06/22 04:20 Eos % (Auto) 0.1 % (0.9-2.9) L 02/06/22 04:20 Baso % (Auto) 0.3 % (0.2-1.0) 02/06/22 04:20 Neut # (Auto) 9.5 x10^3/uL (2.2-4.8) H 02/06/22 04:20 Lymph # (Auto) 1.3 X10^3/uL (1.3-2.9) 02/06/22 04:20 [place] # (Auto) 1.1 x10^3/uL (0.3-0.8) H 02/06/22 04:20 Eos # (Auto) 0.0 x10^3/uL (0.0-0.2) 02/06/22 04:20 Baso # (Auto) 0.0 X10^3/uL (0.0-0.1) 02/06/22 04:20 Absolute Nucleated RBC 0.0 /100WBC 02/06/22 04:20 Total Counted 100 02/06/22 04:20 Neutrophils % (Manual) 71 % (39-76) 02/06/22 04:20 Band Neutrophils % 2 % (0-10) 02/06/22 04:20 Lymphocytes % (Manual) 14 % (13-43) 02/06/22 04:20 Monocytes % (Manual) 13 % (4-9) H 02/06/22 04:20 Plt Morphology Comment Normal (NORMAL) 02/06/22 04:20 RBC Morphology Normal (NORMAL) 02/06/22 04:20 ESR 56 MM/HOUR (0-15) H 02/02/22 16:25 Sample Site Rrad 02/02/22 15:55 ABG pH 7.460 (7.35-7.45) H 02/02/22 15:55 ABG pCO2 32.0 mmHg (35.0-45.0) L 02/02/22 15:55 ABG pO2 51.0 mmHg (80.0-100.0) L 02/02/22 15:55 ABG HCO3 22.8 mmol/L (22-26) 02/02/22 15:55 ABG O2 Saturation 88.0 % (90-100) L 02/02/22 15:55 ABG Base Excess -0.4 mmol/L (-2.0-2.0) 02/02/22 15:55 Jamie Test Pos 02/02/22 15:55 A-a Gradient 59.0 mmHg 02/02/22 15:55 FiO2 21.0 02/02/22 15:55 Blood Gas Comments Srinivas well 02/02/22 15:55 Sodium 140 mmol/L (136-145) 02/06/22 04:20 Corrected Sodium 141 mmol/L (136-145) 02/06/22 04:20 Potassium 4.4 mmol/L (3.5-5.1) 02/06/22 04:20 Chloride 106 mmol/L (98-107) 02/06/22 04:20 Carbon Dioxide 24.9 mmol/L (21-32) 02/06/22 04:20 BUN 12 mg/dL (7-18) 02/06/22 04:20 Creatinine 0.83 mg/dL (0.70-1.30) 02/06/22 04:20 Est GFR (MDRD) Af Amer > 60 (>60) 02/06/22 04:20 Est GFR (MDRD) Non-Af > 60 (>60) 02/06/22 04:20 Glucose 145 mg/dL (65-99) H 02/06/22 04:20 POC Glucose (mg/dL) 118 mg/dL (65-99) H 02/06/22 11:36 Lactic Acid 1.7 mmol/L (0.4-2.0) 02/02/22 16:25 Calcium 8.1 mg/dL (8.5-10.1) L 02/06/22 04:20 Corrected Calcium 9.5 mg/dL (8.5-10.1) 02/06/22 04:20 Magnesium 2.2 mg/dL (1.7-2.9) 02/04/22 04:50 Total Bilirubin 0.20 mg/dL (0.2-1.0) 02/06/22 04:20 AST 20 Units/L (15-37) 02/06/22 04:20 ALT 34 Units/L (12-78) 02/06/22 04:20 Alkaline Phosphatase 63 Units/L (46-116) 02/06/22 04:20 Creatine Kinase 80 Units/L (39-308) 02/02/22 16:25 CK-MB (CK-2) < 1.0 ng/mL (0-4.0) 02/02/22 16:25 CK/CKMB % Calc 1.3 % (<4) 02/02/22 16:25 Troponin I High Sens 36.9 ng/L (4.0-60.0) 02/02/22 16:25 C-Reactive Protein 24.80 mg/L (0-3.0) H 02/06/22 04:20 B-Natriuretic Peptide 73.8 pg/mL (0-79) 02/02/22 16:25 Total Protein 5.4 g/dL (6.4-8.2) L 02/06/22 04:20 Albumin 2.2 g/dL (3.4-5.0) L 02/06/22 04:20 Globulin 3.2 g/dL (2.5-4.5) 02/06/22 04:20 Albumin/Globulin Ratio 0.7 Ratio (1.1-2.1) L 02/06/22 04:20 SARS-CoV-2 (PCR) Negative (NEGATIVE) 02/02/22 16:06 HIV-1 Ab Confirm (Blot) TNP 02/03/22 04:00 HIV 1&2 Antibody Screen Negative (Negative) 02/03/22 04:00 Influenza Type A (PCR) Negative (NEGATIVE) 02/02/22 16:06 Influenza Type B (PCR) Negative (NEGATIVE) 02/02/22 16:06 RSV (PCR) Negative (NEGATIVE) 02/02/22 16:06 - Plan (1) Bilateral pneumonia Status: Acute Qualifiers: Pneumonia type: due to unspecified organism Lung location: unspecified part of lung Qualified Code(s): J18.9 - Pneumonia, unspecified organism Plan: SUPPLEMENTAL OXYGEN, D51/2NS WITH 20MEQ KCL AT KVO, FORTAZ 1G IV Q8H, LEVA RAFY 750MG IV HS, DIFLUCAN 200MG IV DAILY, ROBITUSSIN DM 10ML QID, SOLU-MEDROL 80MG IV Q4H, DUONEBS Q4H, PULMICORT NEBS BID, OTBS ACHS, HUMULIN R SLIDING SCALE, AND THE POTASSIUM AND MAGNESIUM PROTOCOL. (2) Hypoxia Status: Acute (3) Constipation Status: Acute Qualifiers: Constipation type: slow transit constipation Qualified Code(s): K59.01 - Slow transit constipation Plan: COLACE, MILK OF MAGNESIA, MIRALAX
== END 2022-02-06 16:00 | disposition home health service (06) | DRG 194 ==
LOC: ER 15:30 → ICU 17:44
PROVIDERS: ADMIT Internal Medicine; ATTEND Internal Medicine
DX: F11.20 Opioid dependence, uncomplicated; Z20.822 Contact with and (suspected) exposure to COVID-19; R09.02 Hypoxemia; Z85.828 Personal history of other malignant neoplasm of skin; J13 Pneumonia due to Streptococcus pneumoniae